=== PATIENT | male | born 1965 | race Caucasian/White ===

== ENCOUNTER 2020-05-21 07:52 | Day surgery (SDC) | payer BC ==
--- OUTSIDE RECORDS SUMMARY | 2020-05-12 10:31 | XMSREPORT | Referral Summary ---
:1965 Author Organization [facility] Address [address] [address] Phone Care Team Providers Name Role Phone MD Sanchez Primary Care Provider Reason for Referral Surgery (Routine) Status Reason Specialty Diagnoses / Referred By Referred To Procedures Contact Contact Authorized Prior Auth Before Diagnoses Colon cancer screening [facility] Bayron Yi, Scheduling Procedures COLONOSCOPY,FLEX,DIAGNOSTIC Medicine [address] [place] [phone] Phone: Fax: Reason for Visit Reason Onset Date Comments Prior Authorization 05/07/2020 screening colonoscop y Encounter Details Date Type Department Care Team Description 05/07/2020 Telephone Prior Chandan Oakes [facility] Prisca Talbot LPN ([facility] eening colonoscopy) [facility] [address] [place] [phone] Allergies No Known Allergiesdocumented as of this encounter (statuses as of 05/07/2020) Medications Medication Sig Dispensed Refills Start Date End Date Status Multiple Vitamin Take 1 Tab by 100 Tab 0 12/28/2011 Active (MULTIVITAMIN) tablet mouth one time a day. PROAIR HFA 108 (90 INHALE 1- 2 PUFFS 1 Inhaler 5 10/27/2017 Active Base) MCG/ACT INTO THE LUNGS inhalation aerosol EVERY 4 HOURS NEEDED FOR SHORTNESS OF BREATH. SHAKE BEFORE USING carbidopa-levodopa CR Take 1 Tab by 30 Tab 11 09/05/2019 Active (SINEMET CR) 50-200 MG mouth one time a oral tablet day. Take with meals; do not crush. rasagiline mesylate Take 1 Tab by 90 Tab 3 05/07/2020 Active (AZILECT) 1 MG Tablet mouth one time a day. methylphenidate Take 1 Tab by 30 Tab 0 05/07/2020 Active (Metadate ER, Ritalin mouth every SR) 20 MG extended morning before release breakfast. Administer before meals. Do not crush. venlafaxine TAKE 1 CAPSULE BY 90 Cap 3 05/07/2020 Active (Effexor-XR) 150 MG 24 MOUTH DAILY. hour extended release SWALLOW CAPSULE capsule WHOLE. DO NOT CRUSH OR CHEW. CAPSULE MAY BE OPENED AND SPRINKLED ON FOOD pramipexole (Mirapex) Take 1 Tab by 30 Tab 5 05/07/2020 Active 0.25 MG tablet mouth three times a day. documented as of this encounter (statuses as of 05/07/2020) Active Problems Problem Noted Date Obesity (BMI 30.0-34.9) 01/10/2019 Parkinsonism 03/14/2013 Periodic limb movement sleep disorder 2012 Recurrent major depressive disorder, in full remission 12/04/2011 Dysthymic disorder 12/27/2010 Tobacco use disorder 07/07/2009 Obstructive sleep apnea syndrome documented as of this encounter (statuses as of 05/07/2020) Resolved Problems Problem Noted Date Resolved Date Parkinson disease 2012 03/14/2013 documented as of this encounter (statuses as of 05/07/2020) Immunizations Name Administration Dates Next Due Influenza (Historic Use Only) 06/10/2008 Influenza Quad Preservative Free 07/01/2019, 05/23/2018 Influenza Seasonal Inj A,B 05/24/2017, 06/29/2016, 8, 08/03/2005 Influenza Seasonal Inj A,B 05/23/2018 Preservative Free Influenza Unspecified Formulation 05/24/2017, 06/10/2015 Influenza, Whole 07/01/2014 TD >7yrs With Preservative 06/10/2008 Tdap >7 years 12/29/2010 documented as of this encounter Social History Tobacco Use Types Packs/Day Years Used Date Never Smoker Smokeless Tobacco: Current User Chew Comments: start 17 y/o total 36 years X 1 can weekly Sex Assigned at Date Recorded Not on file Job Start Date Occupation Industry Not on file Not on file Not on file COVID-19 Exposure Response Date Recorded In the last month, have you been in contact with No / Unsure 05/07/2020 8:18 AM CDT someone who was confirmed or suspected to have Coronavirus / COVID-19? documented as of this encounter Plan of Treatment Not on filedocumented as of this encounter Visit Diagnoses Diagnosis Colon cancer screening Special screening for malignant neoplasm s, colon documented in this encounter Insurance Payer Benefit Plan / Subscriber ID Effective Dates Phone Addre ss Type Group BCBS OTHER BCBS OTHER [id number] 2019-Soy BCBS Commercial [facility] t documented as of this encounter
[2020-05-21] MEDS ORDERED: Sodium Chloride 0.9% 1,000 ML IV SCH (08:30)
[2020-05-21] MEDS ORDERED: fentaNYL 100 MCG/2 ML SDV ONE (08:43)
[2020-05-21] MEDS ORDERED: Midazolam 1 MG/ML 2 ML SDV ONE (08:43)
[2020-05-21] MEDS ORDERED: Propofol 200 MG/20 ML SDV ONE (08:44)
[2020-05-21 11:05] VITALS: BP 139/103; PULSE 69
--- NOTE | 2020-05-22 10:27 | OR ---
DATE OF PROCEDURE: 05/21/2020 SURGEON: Man Carlisle MD PROCEDURE: Colonoscopy. FINDINGS: Descending colon polyp, approximately 5 mm, completely removed using cold biopsy forceps. PREOPERATIVE DIAGNOSIS: Family history of colorectal cancer. POSTOPERATIVE DIAGNOSIS: Family history of colorectal cancer. RISKS: Risks, benefits, alternatives, and limitations including, but not limited to infection, bleeding, perforation, false- positives and false-negatives were explained to the patient, who wished to proceed. PROCEDURE IN DETAIL: The patient was placed in left lateral decubitus position. Digital rectal exam was performed without abnormality. The scope was introduced atraumatically to the ileocecal valve. A photo was taken of this. The ileum was cannulated. No evidence of ileitis or abnormality. The scope was brought back through the remainder of the colon. No old or new blood. No diverticulosis. No colitis. The polyp would be described as a small pedunculated type and completely removed. No abnormalities on retroflexion. The patient tolerated the procedure well. Man Carlisle MD /[id number]
== END 2020-05-21 11:20 | disposition home or self-care (01) ==
LOC: JP.SDS 07:52
PROVIDERS: ATTEND Surgery
DX: Z12.11 Encounter for screening for malignant neoplasm of colon (principal); D12.4 Benign neoplasm of descending colon; G47.33 Obstructive sleep apnea (adult) (pediatric); G20 Parkinson's disease; F17.200 Nicotine dependence, unspecified, uncomplicated; Z80.0 Family history of malignant neoplasm of digestive organs
CPT/HCPCS: 45380; J2250; J2704; J3010; J7030; 88305